=== PATIENT | male | born 1970 | race Caucasian/White ===

== ENCOUNTER → 2017-10-13 | Day surgery (SDC) | payer OTHER ==
[~2017-10-13] MED LIST: CLONAZEPAM1 MG; CLONAZEPAM2 MG; CYMBALTA60 MG; HYZAAR 100-12.1 EACH; NAPROXEN500 MG; RESTORIL7.5 MG; WELLBUTRIN XL150 M1 PO
== END | disposition home or self-care (01) ==
LOC: AMB-ENDOS 08:30
DX: K57.32 Diverticulitis of large intestine without perforation or abscess without bleeding (principal); Z12.11 Encounter for screening for malignant neoplasm of colon

== ENCOUNTER 2017-10-15 07:00 | Inpatient (IN) | payer OTHER ==
[~2017-10-15] VITALS: Ht 172.7 cm; Wt 99.8 kg
== END 2017-10-18 12:43 | disposition home or self-care (01) | DRG 330 ==
LOC: SURH 07:00 → O/R 08:07 → SURH 12:17 → MEDI 19:05 → SURH 10-18 11:18
PROVIDERS: Colon & Rectal Surgery
PROC: 0DQU4ZZ Repair Omentum, Percutaneous Endoscopic Approach (ICD-10-PCS; 2017-10-15)
PROC: 0DJD8ZZ Inspection of Lower Intestinal Tract, Via Natural or Artificial Opening Endoscopic (ICD-10-PCS; 2017-10-15)
PROC: 4A033R1 Measurement of Arterial Saturation, Peripheral, Percutaneous Approach (ICD-10-PCS; 2017-10-15)
PROC: 4A12X4Z Monitoring of Cardiac Electrical Activity, External Approach (ICD-10-PCS; 2017-10-15)
PROC: 0DTN4ZZ Resection of Sigmoid Colon, Percutaneous Endoscopic Approach (ICD-10-PCS; principal; 2017-10-15 07:00)
DX: K57.20 Diverticulitis of large intestine with perforation and abscess without bleeding (principal); F41.8 Other specified anxiety disorders